=== PATIENT | male | born 1970 | race Caucasian/White ===

== ENCOUNTER 2021-02-10 15:02 | Inpatient (IN) | payer BC, SELFPAY ==
[~2021-02-10] VITALS: Ht 175.3 cm; Wt 83.5 kg
[2021-02-10 15:19] VITALS: BP 127/70
--- NOTE | 2021-02-10 15:23 | NUR ---
Patient ambulated with steady gait to bed 10
--- NOTE | 2021-02-10 15:30 | NUR ---
51/M presents to ED with c/o headache and general weakness. Patient states he tested positive for covid one week ago and states his symptoms have been worsening since. Patient states he has been experiencing headache, chills and general weakness, denies chest pain, sob or fever. Patient placed in gown on bedside bench hand, pulse 102, O2 sat 96% on room air, Dr. Hernandez made aware of patient.
--- NOTE | 2021-02-10 15:35 | NUR ---
20g IV established to left AC. Labs and cultures drawn and handed to company laborer.
--- NOTE | 2021-02-10 15:51 | NUR ---
technical support manager at bedside
[2021-02-10] MEDS ORDERED: NACL 0.9% 1,000 ML IV ONE (16:00)
[2021-02-10] MEDS ORDERED: ONDANSETRON 4 MG/2 ML VIAL IVP ONE (16:00)
[2021-02-10] MEDS ORDERED: KETOROLAC 30 MG/ML VIAL IVP ONE (16:00)
[2021-02-10 16:01] LABS: BASOPHILS % (AUTO) 0.2 % (0.0-2.0); HEMATOCRIT 43.5 % (36-52); HEMOGLOBIN 15.1 g/dL (12.0-18.0); LYMPHOCYTES # (AUTO) 0.8 K/uL (2.0-11.5); LYMPHOCYTES % (AUTO) 14.1 % (20.5-51.1); MEAN CORPUSCULAR HEMOGLOBIN 31 pg (27-31); MEAN CORPUSCULAR HGB CONC 35 g/dL (33-37); MONOCYTES # (AUTO) 0.3 K/uL (0.8-1.0); MONOCYTES % (AUTO) 5.5 % (1.7-9.3); NEUTROPHILS # (AUTO) 4.6 K/uL (1.8-7.7); NEUTROPHILS % (AUTO) 80.2 % (42.2-75.2); PLATELET COUNT (AUTO) 295 K/uL (140-450); RED BLOOD CELL COUNT(AUTO) 4.94 MIL/uL (4.20-6.10); RED CELL DISTRIBUTION WIDTH 12.6 % (11.6-13.7); WHITE BLOOD COUNT (AUTO) 5.8 K/uL (4.8-10.8)
[2021-02-10 16:15] LABS: ALBUMIN 3.5 g/dL (3.4-5.0); CREATININE 0.9 mg/dL (0.6-1.3); TOTAL BILIRUBIN 0.3 mg/dL (0.0-1.0)
[2021-02-10 16:19] LABS: C-REACTIVE PROTEIN QUANT 5.8 mg/dL (0.0-0.9)
--- NOTE | 2021-02-10 18:16 | NUR ---
Spoke with patients daughter Mylene Ruvalcaba with an update on patient.
[2021-02-10] MEDS ORDERED: LORazepam 1 MG TAB PO PRN (18:35)
[2021-02-10] MEDS ORDERED: POTASSIUM CHLORIDE 10 MEQ TABER PO PRN (18:35)
[2021-02-10] MEDS ORDERED: MAGNESIUM OXIDE 400 MG TAB PO PRN (18:35)
[2021-02-10] MEDS ORDERED: ONDANSETRON 4 MG/2 ML VIAL IVP PRN (18:35)
[2021-02-10] MEDS ORDERED: MAG SULF 2000 MG/WATER PREMIX 50 ML IV PRN (18:35)
[2021-02-10] MEDS ORDERED: HYDROcodone/APAP 5/325 MG 1 TAB TAB PO PRN (18:35)
[2021-02-10] MEDS ORDERED: KCL 20 MEQ/WATER INJ PREMIX 200 ML IV PRN (18:35)
[2021-02-10] MEDS ORDERED: MORPHINE SULFATE 4 MG/ML SYR IVP PRN (18:35)
--- NOTE | 2021-02-10 18:55 | NUR ---
Collected Novel covid swab and walked it to lab.
[2021-02-10] MEDS ORDERED: cefTRIAXone 1,000 MG VIAL ONE (19:19)
--- NOTE | 2021-02-10 19:37 | NUR ---
Pt report given to Rai MICHELE. Transfer of care at this time.
--- NOTE | 2021-02-10 19:38 | NUR ---
RECEIVED REPORT FROM BRENDA MICHELE FOR CONTINUITY OF CARE
[2021-02-10] MEDS ORDERED: AZITHROMYCIN 500 MG INJ VIAL IV ONE (20:19)
[2021-02-10] MEDS: AZITHROMYCIN 500 MG in DEXTROSE 5% 250 ML IV SCH (20:22)
--- NOTE | 2021-02-10 22:31 | NUR ---
PT RESTING IN BED WITH HOB ELEVATED. PT DENIES ANY SOB/. PT PROVIDED WITH SNACKS REQUESTED. DENIES ANY PAIN OR DISCOMFORT WELL. PT KEPT COMFORTABLE. MONITORS IN PLACE. CALL LIGHT WITHIN REACH. WILL CONTINUE TO MONITOR.
--- NOTE | 2021-02-11 02:08 | NUR ---
PT ASLEEP. NO S/SX OF DISTRESS NOTED. SPO2 95%. PT KEPT COMFORTABLE. CALL LIGHT WITHIN REACH. WILL CONTINUE TO MONITOR.
--- NOTE | 2021-02-11 05:39 | NUR ---
PT PROVIDED WITH WATER AND SNACKS REQUESTED. SPO2 95% RR 25. DENIES ANY PAIN OR DISCOMFORT.
--- NOTE | 2021-02-11 06:23 | NUR ---
SPO2 92%. PT INSTRUCTED TO DEEP BREATH. PT ALSO PLACED ON O2 2LPM/NC. SPO2 UP TO 95%. WILL CONITNUE TO MONITOR.
--- NOTE | 2021-02-11 07:15 | NUR ---
endorsed to day shift nurse for continuity of care
--- NOTE | 2021-02-11 07:17 | NUR ---
report received from LENY boothe. transfer of care received for continuity of care
--- NOTE | 2021-02-11 07:32 | NUR ---
xray bedside with pt
--- NOTE | 2021-02-11 08:32 | NUR ---
pt currently resting bedside and provided with breakfast try. pt denies any pain currently. titrated pt down to 1 L/min on NC and current O2 is 95%. Will continue to monitor
[2021-02-11] MEDS: DOCUSATE SODIUM 100 MG GELCAP PO SCH (08:46)
[2021-02-11] MEDS: ENOXAPARIN 40 MG/0.4 ML SYR SUBQ SCH (08:47)
[2021-02-11 09:23] LABS: BASOPHILS % (AUTO) 0.2 % (0.0-2.0); HEMATOCRIT 43.1 % (36-52); HEMOGLOBIN 14.8 g/dL (12.0-18.0); LYMPHOCYTES # (AUTO) 1.2 K/uL (2.0-11.5); LYMPHOCYTES % (AUTO) 20.2 % (20.5-51.1); MEAN CORPUSCULAR HEMOGLOBIN 31 pg (27-31); MEAN CORPUSCULAR HGB CONC 34 g/dL (33-37); MEAN CORPUSCULAR VOLUME 89.9 fL (80-94); MONOCYTES # (AUTO) 0.4 K/uL (0.8-1.0); MONOCYTES % (AUTO) 5.8 % (1.7-9.3); NEUTROPHILS # (AUTO) 4.5 K/uL (1.8-7.7); NEUTROPHILS % (AUTO) 73.8 % (42.2-75.2); PLATELET COUNT (AUTO) 358 K/uL (140-450); RED CELL DISTRIBUTION WIDTH 12.8 % (11.6-13.7)
[2021-02-11 10:47] LABS: ALBUMIN 3.3 g/dL (3.4-5.0); ANION GAP 12.8 (8-16); CARBON DIOXIDE 26.3 mmol/L (21-32); CHOL/HDL RATIO 2.8 (1-4.5); CREATININE 0.8 mg/dL (0.6-1.3); MAGNESIUM 2.2 mg/dL (1.8-2.4); POTASSIUM 4.1 mmol/L (3.5-5.1); TOTAL BILIRUBIN 0.3 mg/dL (0.0-1.0)
--- NOTE | 2021-02-11 11:18 | NUR ---
PT CURRENTLY RESTING WITH EYES OPEN AND LIGHTS OFF. BED IN LOWEST POSITION AND SIDERAIL X1 UP. PT CURRENTLY DENIES ANY PAIN AT THIS MOMENT. VITAL SIGNS STABLE AND PT ON CABLE WIRER. WILL CONTINUE TO MONITOR
--- NOTE | 2021-02-11 15:58 | NUR ---
PATIENT HAS BEEN SCREENED AND CATEGORIZED MODERATE NUTRITION RISK. PATIENT WILL BE SEEN WITHIN 3-5 DAYS OF ADMISSION. 02/13/2021-02/15/[address]
[2021-02-11] MEDS: ACETAMINOPHEN 325 MG TAB PO PRN (16:37)
--- NOTE | 2021-02-11 16:38 | NUR ---
PT STATED HE CURRENTLY HAS A HEADACHE AND WAS PROVIDED TYNELOL BEDSIDE. PT ALSO PROVIDED WITH PILLOW AND CALL LIGHT. VITAL SIGNS CURRENTLY STABLE AND PT STILL ON SAND DIGGER. WILL CONTINUE TO MONITOR PT
--- NOTE | 2021-02-11 18:12 | NUR ---
PT HAS BEEN PROVIDED DINNER TRAY BEDSIDE
[2021-02-11] MEDS ORDERED: cefTRIAXone 1,000 MG VIAL ONE (18:42)
--- NOTE | 2021-02-11 19:28 | NUR ---
Received report from Violeta MICHELE for continuity of care
--- NOTE | 2021-02-11 19:28 | NUR ---
Pt report given to LENY EMMANUEL. Transfer of care at this time.
--- NOTE | 2021-02-11 20:35 | NUR ---
Patient will be admitted to care of Remi TONEY. Admited to Telemetry. Will go to room 115. Belongings list completed. Report to Rob MICHELE.
--- NOTE | 2021-02-11 23:00 | NUR ---
the pateint bwas admitted on 02/11/2021 at 2300 for headache and generaliez wekaness , he is on RA WITH O2 STAT 95%, HIS VITALS ARE STABEL , HE IS ON DROPLET ISOLATION FOR COVID PENDING HE IS MICRONESIAN SPEAKING , HE HAS NO MEDICAL CONDITION HISTORY HIS BOWEL SOUNDS ARE ACTIVE , AND HE IS IN SR
[2021-02-12] MEDS ORDERED: AZITHROMYCIN 500 MG INJ VIAL IV ONE (02:55)
[2021-02-12] MEDS: AZITHROMYCIN 500 MG in DEXTROSE 5% 250 ML IV SCH ×2 (03:02→19:25)
[2021-02-12 06:17] VITALS: BP 120/74
--- NOTE | 2021-02-12 07:15 | NUR ---
RECEIVED REPORT FROM IMPLEMENTATION TECHNICIAN RN FOR CONTINUITY OF CARE. PATIENT IS RESTING IN BED. NO S/S OF DISTRESS. ALL SAFETY PRECAUTIONS IN PLACE.
[2021-02-12 07:32] LABS: BASOPHILS % (AUTO) 0.2 % (0.0-2.0); HEMOGLOBIN 14.5 g/dL (12.0-18.0); LYMPHOCYTES # (AUTO) 0.9 K/uL (2.0-11.5); LYMPHOCYTES % (AUTO) 16.6 % (20.5-51.1); MEAN CORPUSCULAR HEMOGLOBIN 31 pg (27-31); MEAN CORPUSCULAR HGB CONC 35 g/dL (33-37); MEAN CORPUSCULAR VOLUME 88.9 fL (80-94); MONOCYTES # (AUTO) 0.3 K/uL (0.8-1.0); MONOCYTES % (AUTO) 5.3 % (1.7-9.3); NEUTROPHILS % (AUTO) 77.9 % (42.2-75.2); PLATELET COUNT (AUTO) 426 K/uL (140-450); RED BLOOD CELL COUNT(AUTO) 4.73 MIL/uL (4.20-6.10); RED CELL DISTRIBUTION WIDTH 12.8 % (11.6-13.7); WHITE BLOOD COUNT (AUTO) 5.2 K/uL (4.8-10.8)
[2021-02-12 07:45] LABS: ALBUMIN 2.9 g/dL (3.4-5.0); ANION GAP 12.8 (8-16); CREATININE 0.9 mg/dL (0.6-1.3); MAGNESIUM 2.3 mg/dL (1.8-2.4); POTASSIUM 3.8 mmol/L (3.5-5.1); TOTAL BILIRUBIN 0.2 mg/dL (0.0-1.0)
[2021-02-12 08:00] VITALS: BP 124/77
[2021-02-12] MEDS: DOCUSATE SODIUM 100 MG GELCAP PO SCH (08:34)
[2021-02-12] MEDS: ENOXAPARIN 40 MG/0.4 ML SYR SUBQ SCH (08:35)
[2021-02-12] MEDS: ACETAMINOPHEN 325 MG TAB PO PRN ×2 (08:37→17:09)
--- NOTE | 2021-02-12 09:00 | NUR ---
ADMINISTERED SCHEDULED MEDICATIONS. PATIENT VERBALIZED UNDERSTANDING. ALL SAFETY PRECAUTIONS IN PLACE.
[2021-02-12 12:00] VITALS: BP 115/78
--- NOTE | 2021-02-12 13:59 | NUR ---
PATIENT COMPLAINED OF NAUSEA. ADMINISTERED PRN ZOFRAN. IV SITE IS PATENT, DRY AND INTACT. PATIENT VERBALIZED UNDERSTANDING. WILL CONTINUE TO MONITOR.
[2021-02-12 16:00] VITALS: BP 139/85
--- NOTE | 2021-02-12 17:15 | NUR ---
PATIENT HAD A FEVER OF 100.4. ADMINISTERED PRN TYLENOL. PATIENT DOES NOT COMPLAIN OF ANY PAIN. NO S/S OF DISTRESS. RESPIRATIONS ARE EVEN AND UNLABORED. DOCTOR IS AWARE. WILL CONTINUE TO MONITOR.
--- NOTE | 2021-02-12 19:30 | NUR ---
RECEIVED REPORT FROM RN DAYSHIFT NURSE, PT IN STABLE CONDITION.
--- NOTE | 2021-02-12 19:33 | NUR ---
ENDORSED PATIENT TO DIRECTOR OF STRATEGIC COMMUNICATIONS RN FOR CONTINUITY OF CARE. PATIENT IS STABLE.
[2021-02-12 20:00] VITALS: BP 110/74
--- NOTE | 2021-02-12 20:00 | NUR ---
PT SITTING UP IN BED ON ROOM AIR AOX4. IV SITE LAC 20G RUNNING AT 10MLS/HR TO KVO. V/S FOLLOWS: T 99.6 P 92 R 20 B/P 110/74 02 97% ON ROOM AIR. ALL ORDERED PRECAUTIONS IN PLACE.
--- NOTE | 2021-02-12 22:30 | NUR ---
ROUNDS DONE, ALL REQUESTED NEEDS ATTENDED AND ALL ORDERED PRECAUTIONS IN PLACE. .
[2021-02-13] VITALS: BP 121/75
--- NOTE | 2021-02-13 | NUR ---
PT IN BED AWAKE WATCHING TV HE CONTINUES ON ROOM AIR, V/S FOLLOWS: T 99.8 p 94 r 20 B/P 110/74 02 96% ON ROOM AIR.
--- NOTE | 2021-02-13 01:30 | NUR ---
PT C/O ANXIOUS AND SLEEPLESS, PT GIVEN PO ATIVAN. WILL MONITOR FOR EFFECT.
[2021-02-13 04:00] VITALS: BP 118/78
--- NOTE | 2021-02-13 05:30 | NUR ---
PT IN BED ASLEEP RR EVEN AND UNLABORED ON ROOM AIR, IV SITE INTACT RUNNING TO KVO ALL UNIVERSAL PRECAUTIONS IN PLACE WELL DROPLET PRECAUTIONS.
[2021-02-13 07:07] LABS: BASOPHILS % (AUTO) 0.2 % (0.0-2.0); EOSINOPHILS % (AUTO) 0.1 % (0.0-4.0); HEMATOCRIT 40.2 % (36-52); HEMOGLOBIN 14.4 g/dL (12.0-18.0); LYMPHOCYTES # (AUTO) 0.9 K/uL (2.0-11.5); LYMPHOCYTES % (AUTO) 16.5 % (20.5-51.1); MEAN CORPUSCULAR HEMOGLOBIN 31 pg (27-31); MEAN CORPUSCULAR HGB CONC 36 g/dL (33-37); MEAN CORPUSCULAR VOLUME 87.4 fL (80-94); MONOCYTES # (AUTO) 0.4 K/uL (0.8-1.0); MONOCYTES % (AUTO) 6.8 % (1.7-9.3); NEUTROPHILS # (AUTO) 4.4 K/uL (1.8-7.7); NEUTROPHILS % (AUTO) 76.4 % (42.2-75.2); PLATELET COUNT (AUTO) 460 K/uL (140-450); RED CELL DISTRIBUTION WIDTH 12.8 % (11.6-13.7); WHITE BLOOD COUNT (AUTO) 5.7 K/uL (4.8-10.8)
--- NOTE | 2021-02-13 07:28 | NUR ---
RECEIVED REPORT FROM CANOPY INSPECTOR NURSE FOR CONTINUITY OF CARE, PT IS ASLEEP IN BED WITH CHEST RISING AND FALLING EVEN AND UNLABORED, ON ROOM AIR WITH NO S/S OF SOB. PT HAS A LEFT AC RUNNING 10ML FOR TKO. PT HAS A URINAL AT BEDSIDE. SKIN INTACT. ALERT AND ORIENTED X4. COVID PRECAUTIONS IN PLACE, SAFETY MEASURES IN PLACE, CALL LIGHT WITHIN REACH. WILL CONTINUE TO MONITOR.
[2021-02-13 08:00] VITALS: BP 131/74
[2021-02-13 08:54] LABS: ALBUMIN 2.8 g/dL (3.4-5.0); ANION GAP 14.9 (8-16); CARBON DIOXIDE 26.2 mmol/L (21-32); CREATININE 0.9 mg/dL (0.6-1.3); MAGNESIUM 2.1 mg/dL (1.8-2.4); POTASSIUM 4.1 mmol/L (3.5-5.1); TOTAL BILIRUBIN 0.4 mg/dL (0.0-1.0)
[2021-02-13] MEDS: ENOXAPARIN 40 MG/0.4 ML SYR SUBQ SCH (09:08)
[2021-02-13] MEDS: DOCUSATE SODIUM 100 MG GELCAP PO SCH (09:09)
--- NOTE | 2021-02-13 09:19 | NUR ---
MARTIN MEDICATION ADMINISTERED PER MD ORDER. PT EDUCATION PROVIDED, PT VERBALIZED UNDERSTANDING. PT TOLERATED ADMINISTRATION. PRN PAIN MEDICATION ADMINISTERED PER MD ORDER, 5/10 PAIN FROM KIRAN. PT EDUCATION PROVIDED, PT TOLERATED ADMINISTRATION. ALL SAFETY MEASURES IN PLACE, CALL LIGHT WITHIN REACH. WILL CONTINUE TO MONITOR.
--- NOTE | 2021-02-13 10:41 | NUR ---
PT IS ASLEEP IN BED WITH NO ACUTE S/S OF DISTRESS. ALL SAFETY MEASURES IN PLACE, CALL LIGHT WITHIN REACH. WILL CONTINUE TO MONITOR.
--- NOTE | 2021-02-13 11:16 | NUR ---
DC [age] YRS OLD MALE PATIENT WAS ADMITTED FROM HOME WITH A DX OF COVID. PATIENT HAS NO MEDICAL HISTORY. CXR SHOWED MULTIFOCAL PNEUMONIA. PCR COVID TEST POSITIVE. RECEIVED COVID TEST RESULT FROM LAB DOCUMENTED ON CRITICAL LAB AND NOTIFIED NURSE FIONA AND DR LAI. ADMINISTERED IVF, IV ABX AZITHROMYCIN AND ROCEPHIN. ON ROOM AIR SATING 96%. DC PLAN TO GO HOME WHEN STABLE CM TO FOLLOW
[2021-02-13 12:00] VITALS: BP 124/79
--- NOTE | 2021-02-13 12:37 | NUR ---
PT IS STABLE IN NO ACUTE S/S OF DISTRESS, NO SOB NOTED OR REPORTED. ALL SAFETY MEASURES IN PLACE, CALL LIGHT WITHIN REACH. WILL CONTINUE TO MONITOR.
--- NOTE | 2021-02-13 14:39 | NUR ---
PT IS STABLE WITH NO ACUTE S/S OF DISTRESS, ALL SAFETY MEASURES IN PLACE, CALL LIGHT WITHIN REACH. WILL COTNINUE TO MONITOR.
--- NOTE | 2021-02-13 15:24 | NUR ---
DISCHARGE INSTRUCTIONS REGARDING FOLLOW UP WITH PCP, ISOLATE FOR 14 DAYS, DECREASE TRANSMISSION, AND S/S TO MONITOR FOR AND IF WORSENING OF SYMPTOMS TO RETURN TO NEAREST EMERGENCY ROOM. ANSWERED ALL OF PTS QUESTIONS. PT VERBALIZED UNDERSTANDING. PT BELONGINGS HANDED TO PT, PT EDUCATED ON USING CALL LIGHT WHEN FAMILY MEMBER IS HERE TO PICK PT UP. ALL SAFETY MEASURES IN PLACE, CALL LIGHT WITHIN REACH.
[2021-02-13 16:00] VITALS: BP 132/78
--- NOTE | 2021-02-13 16:09 | NUR ---
SPOKE WITH PTS SISTER WITH PTS APPROVAL. ANSWERED ALL OF FAMILY MEMBERS QUESTIONS REGARDING DISCHARGE.
--- NOTE | 2021-02-13 17:55 | NUR ---
PT HAS BEEN DISCHARGED IN STABLE CONDITION. PT GATHERED ALL BELONGING. IV REMOVED, IV CATH INTACT. ID BAND REMOVED. ALL QUESTIONS AND CONCERNED ANSWERED. PT IS IN STABLE CONDITION, ON ROOM AIR SATING AT 98 PERCENT.
== END 2021-02-13 17:55 | disposition home or self-care (01) | DRG 177 ==
LOC: MED 15:02 → MTU 18:46 → OBSVTOIN 02-12 14:40 → MMU 02-13 03:49
PROVIDERS: ADMIT Hospitalist; ATTEND Hospitalist
DX: U07.1 COVID-19 (principal); J96.01 Acute respiratory failure with hypoxia; J12.82 Pneumonia due to coronavirus disease 2019
CPT/HCPCS: 36415; 71045; 80053; 82728; 83036; 83605; 83735; 83880; 84484; 85025; 85379; 86140; 87040; 87804; 93005; 96361; 96374; 96375; 99285; G0378; J0456; J0696; J1650; J1885; J2405; J7060; U0003